=== PATIENT | female | born 1990 | race Caucasian/White ===

== ENCOUNTER → 2016-05-28 | Emergency (ER) | payer OTHER ==
[~2016-05-28] VITALS: Wt 61.5 kg
[~2016-05-28] MED LIST: ACET1TAB40 PO; FAMOTIDINE 20 MG INJ IV STA; ONDA8TAB14 PO; ONDANSETRON 4 MG INJ IV STA; SOD CHLORIDE 0.9% 1,000 ML IV STA; morphine 2 MG INJ IV STA
[2016-05-28 16:47] LABS: ADD UMIC YES; URINE BILIRUBIN (Dip) NEGATIVE (NEGATIVE); URINE BLOOD (Dip) NEGATIVE (NEGATIVE); URINE COLOR LT. YELLOW (YELLOW); URINE GLUCOSE (Dip) NEGATIVE (NEGATIVE); URINE KETONES (Dip) 15 (NEGATIVE); URINE LEUKOCYTE ESTERASE (Dip) TRACE (NEGATIVE); URINE NITRITE (Dip) NEGATIVE (NEGATIVE); URINE TOTAL PROTEIN (Dip) 1+ (NEGATIVE); URINE UROBILINOGEN (Dip) 0.2 E.U./dL (0.1-1.0)
[2016-05-28 16:55] LABS: CONDITION 1; HEMOGLOBIN 14.1 g/dl (12.0-16.0); LH ANALYZER COMMENTS 1; MEAN CORPUSCULAR HEMOGLOBIN 29.5 pg (29.0-33.0); MEAN CORPUSCULAR HGB CONC 34.3 g/dl (32.0-37.0); MEAN CORPUSCULAR VOLUME 86.1 fl (82.0-101.0); MEAN PLATELET VOLUME 10.7 fl (7.4-10.4); PLATELET COUNT 232 10^3/UL (140-440); RED BLOOD COUNT 4.77 10^6/ul (4.20-5.40); RED CELL DISTRIBUTION WIDTH 15.2 % (11.5-14.5); SUSPECT 1; UNCORRECTED WBC 15.4 10^3/ul (4.8-10.8); WHITE BLOOD COUNT 15.4 10^3/ul (4.8-10.8)
[2016-05-28 16:59] LABS: ALBUMIN 5.3 g/dl (3.3-4.9)
[2016-05-28 17:00] LABS: POTASSIUM 4.1 mmol/L (3.5-5.1)
[2016-05-28 17:02] LABS: ALBUMIN/GLOBULIN RATIO 1.06; BILIRUBIN,INDIRECT 0.3 mg/dl (0-1.1); BILIRUBIN,TOTAL 0.3 mg/dl (0.2-1.3); CREATININE 0.66 mg/dl (0.44-1.00); TOTAL PROTEIN 10.3 g/dl (6.1-8.1)
[2016-05-28 17:03] LABS: CALCIUM 9.8 mg/dl (8.4-10.2)
[2016-05-28 17:05] LABS: BACTERIA,URINE FEW; SQUAMOUS EPITHELIAL CELL,UR MANY; URINE RBCS 0-2 /HPF (0)
[2016-05-28 18:05] LABS: MONOCYTE # 0.8 10^3/ul (0.3-0.9); NEUTROPHIL # 12.5 10^3/ul (1.6-7.5)
--- NOTE | 2016-05-28 18:22 | ERD ---
ER Documentation Chief Complaint Date/Time DATE: 05/28/16 TIME: 18:20 Chief Complaint NAUSEA, VOMITING AFTER ETOH BINGE DRINKING LAST NIGHT HPI This 25-year-old female presents with vomiting since this morning. She did drink 4 beers last night. She denies any fevers, blood, diarrhea, urinary complaints. ROS All systems reviewed and are negative except as per history of present illness. Medications Home Meds Active Scripts Acetaminophen with Codeine (Acetaminophen-Cod #3 Tablet) 1 Each Tablet, 1 TAB PO Q6H Y for PAIN, #10 TAB Prov:BOBBY ESCOBAR MD 05/28/16 Ondansetron (Ondansetron Odt) 8 Mg Tab.rapdis, 8 MG PO Q6H Y for NAUSEA AND/OR VOMITING, #10 TAB Prov:BOBBY ESCOBAR MD 05/28/16 Reported Medications [None] No Conflict Check 10/12/11 Allergies Allergies: Coded Allergies: No Known Allergy (Unverified , 05/28/16) PMhx/Soc Medical and Surgical Hx: pt denies Medical Hx, pt denies Surgical Hx History of Surgery: No Anesthesia Reaction: No Hx Neurological Disorder: No Hx Respiratory Disorders: No Hx Cardiac Disorders: No Hx Psychiatric Problems: No Hx Miscellaneous Medical Probl: No Hx Alcohol Use: No Hx Substance Use: No Hx Tobacco Use: No Physical Exam Vitals Vital Signs Date Time Temp Pulse Resp B/P Pulse Ox O2 Delivery O2 Flow Rate FiO2 05/28/16 14:03 97.5 73 17 159/92 98 Physical Exam Const: [] Head: Atraumatic Eyes: Normal Conjunctiva ENT: Normal External Ears, Nose and Mouth. Neck: Full range of motion..~ No meningismus. Resp: Clear to auscultation bilaterally Cardio: Regular rate and rhythm, no murmurs Abd: Soft, non tender, non distended. Normal bowel sounds Skin: No petechiae or rashes Back: No midline or flank tenderness Ext: No cyanosis, or edema Neur: Awake and alert Psych: Normal Mood and Affect Result Diagram: 05/28/16 1631 05/28/16 1631 Results 24 hrs Laboratory Tests Test 05/28/16 16:30 05/28/16 16:31 Urine Amorphous Urates FEW Urine Bacteria FEW Urine Bilirubin NEGATIVE Urine Clarity CLOUDY Urine Color LT. YELLOW Urine Glucose NEGATIVE% Urine Hemoglobin NEGATIVE Urine Ketones 15 Urine Leukocyte Esterase TRACE Urine Microscopic RBC 0-2/HPF Urine Microscopic WBC 2-5/HPF Urine Nitrite NEGATIVE Urine Specific [place] 1.015 Urine Squamous Epithelial Cells MANY Urine Total Protein 1+ Urine Urobilinogen 0.2 E.U./dL Urine pH 8.5 Alanine Aminotransferase (ALT/SGPT) 30IU/L Albumin 5.3g/dl Albumin/Globulin Ratio 1.06 Alkaline Phosphatase 82IU/L Anion Gap 22 Aspartate Amino Transf (AST/SGOT) 31IU/L Band Neutrophils % 1.0% Blood Morphology Comment Blood Urea Nitrogen 10mg/dl Calcium Level 9.8mg/dl Carbon Dioxide Level 28mmol/L Chloride Level 101mmol/L Creatinine 0.66mg/dl Direct Bilirubin 0.00mg/dl Globulin 5.00g/dl Glucose Level 103mg/dl Hematocrit 41.0% Hemoglobin 14.1g/dl Indirect Bilirubin 0.3mg/dl Large Platelets FEW Lipase 72U/L Lymphocytes # 2.010^3/ul Lymphocytes % 13.0% Mean Corpuscular Hemoglobin 29.5pg Mean Corpuscular Hemoglobin Concent 34.3g/dl Mean Corpuscular Volume 86.1fl Mean Platelet Volume 10.7fl Monocytes # 0.810^3/ul Monocytes % 5.0% Neutrophils # 12.510^3/ul Neutrophils % 81.0% Platelet Count 17899^3/UL Potassium Level 4.1mmol/L Red Blood Count 4.7710^6/ul Red Cell Distribution Width 15.2% Sodium Level 147mmol/L Total Bilirubin 0.3mg/dl Total Protein 10.3g/dl White Blood Count 15.410^3/ul Current Medications Medications (Trade) Dose Ordered Sig/Mike Route PRN Reason Start Time Stop Time Status Last Admin Dose Admin Sodium Chloride (NS) 1,000 ml @ 1,000 mls/hr Q1H STAT IV 05/28/16 16:04 05/28/16 17:03 DC 05/28/16 16:30 Morphine Sulfate (morphine) 2 mg ONCE STAT IV 05/28/16 16:04 05/28/16 16:06 DC 05/28/16 16:30 Ondansetron HCl (Zofran Inj) 4 mg ONCE STAT IV 05/28/16 16:04 1/6/17 16:06 DC 05/28/16 16:30 Famotidine (Pepcid Iv) 20 mg ONCE STAT IV 05/28/16 16:04 05/28/16 16:06 DC 05/28/16 16:30 Procedures/MDM I views obtained. Patient was given 1 L normal saline IV Zofran 4 mg IV morphine 2 mg IV. Patient felt better after observation treatment. CBC shows white blood count 15. There is trace leukocytes without nitrites, glucose or blood. CMP shows no acute abnormalities and lipase is normal. Patient had a benign abdomen on serial exam. Patient is hCG negative. Patient presents with vomiting 1 day of uncertain etiology. It may be due to alcohol consumption last night or she may have a foodborne illness or viral gastroenteritis as well. Signs and symptoms are not consistent with hepatobiliary disease, , pancreatitis, appendicitis, acute abdomen or obstruction. She will treated with Tylenol 3 and Zofran at home and further observation. Patient should return for fever, blood, vomiting despite treatment, worsening pain, new or worsening symptoms or primary care doctor this week. Departure Diagnosis: Primary Impression: Nausea and vomiting Vomiting type: unspecified Vomiting Intractability: non-intractable Qualified Code: R11.2 - Non-intractable vomiting with nausea, unspecified vomiting type Condition: Stable Patient Instructions: Nausea and Vomiting-Adult Additional Instructions: May be viral illness related to alcohol consumption which should resolve in the next 1-3 days. Recheck for fevers, vomiting despite treatment, worsening pain, blood, new or worsening symptoms. BOBBY ESCOBAR MD May 28, 2016 18:22
== END | disposition home or self-care (01) ==
LOC: FTE 13:56
DX: R11.2 Nausea with vomiting, unspecified (principal)
CPT/HCPCS: 80053; 81001; 81003; 83690; 85025; J2270; J2405; J7030; 36415; 96361; 96374; 96375

== ENCOUNTER 2016-08-27 18:13 | Emergency (ER) | payer OTHER ==
[~2016-08-27] VITALS: Ht 160 cm; Wt 64.0 kg
[~2016-08-27 18:13] MED LIST changes: -FAMOTIDINE 20 MG INJ IV STA; -ONDANSETRON 4 MG INJ IV STA; -SOD CHLORIDE 0.9% 1,000 ML IV STA; -morphine 2 MG INJ IV STA
[2016-08-27 18:17] VITALS: Ht 160 cm; Wt 64.0 kg
[2016-08-27] MEDS ORDERED: HYDROCODONE/APAP (10/325) TAB PO ONE (19:00)
[2016-08-27] MEDS ORDERED: LIDOCAINE 1% (MDV) 20 ML INJ INJ STA (20:03)
--- NOTE | 2016-08-27 20:07 | RADRPT ---
PROCEDURE: Left XR Hand. CLINICAL INDICATION: Foreign body/laceration. TECHNIQUE: AP, oblique and lateral views of the left hand were obtained. COMPARISON: No. FINDINGS: The bones of the hand appear intact, with no evidence of fracture, dislocation, or subluxation. The joint spaces are preserved. Bone mineralization is normal. No significant soft tissue swelling is se en. There is a metallic foreign body embedded in the soft tissues at the distal end of the index fi nger. The adjacent distal phalanx is normal. IMPRESSION: 1. There is a metallic foreign body adjacent to the tuft of the distal left second phalanx. 2. No evidence of an acute fracture. RPTAT:AAJJ Physician Dominick Date Time Electronically viewed and signed by Milo Solorio Physician on 08/27/2016 20:07 DUSTIN/
[2016-08-27] MEDS ORDERED: HYDR-906 PO (20:13)
--- NOTE | 2016-08-27 20:31 | ERD ---
ER Documentation Chief Complaint Date/Time DATE: 08/27/16 TIME: 20:29 Chief Complaint pt bib family with c/o knitting hook in right index finger HPI Patient is a 25-year-old female who presents with foreign body of a knitting hook in her right index finger that occurred today. She tried to remove it at home however given it is hooked at the end he she was unable to. She has pain now at the site. Her tetanus is up-to-date. Denies any numbness or tingling. Has not taken any medications for pain. No bleeding or drainage. ROS All systems reviewed and are negative except as per history of present illness. Medications Home Meds Active Scripts Hydrocodone/Acetaminophen ([place] 5-325 Tablet) 1 Each Tablet, 1 TAB PO Q6H Y for PAIN, #15 TAB Prov:KIT PEDERSON PA-C 08/27/16 Acetaminophen with Codeine (Acetaminophen-Cod #3 Tablet) 1 Each Tablet, 1 TAB PO Q6H Y for PAIN, #10 TAB Prov:BOBBY ESCOBAR MD 05/28/16 Ondansetron (Ondansetron Odt) 8 Mg Tab.rapdis, 8 MG PO Q6H Y for NAUSEA AND/OR VOMITING, #10 TAB Prov:BOBBY ESCOBAR MD 05/28/16 Reported Medications [None] No Conflict Check 10/12/11 Allergies Allergies: Coded Allergies: No Known Allergy (Unverified , 05/28/16) PMhx/Soc Medical and Surgical Hx: pt denies Medical Hx, pt denies Surgical Hx History of Surgery: No Anesthesia Reaction: No Hx Neurological Disorder: No Hx Respiratory Disorders: No Hx Cardiac Disorders: No Hx Psychiatric Problems: No Hx Miscellaneous Medical Probl: No Hx Alcohol Use: No Hx Substance Use: Yes (marijuana) Hx Tobacco Use: No Smoking Status: Never smoker FmHx Family History: No diabetes Physical Exam Vitals Vital Signs Date Time Temp Pulse Resp B/P Pulse Ox O2 Delivery O2 Flow Rate FiO2 08/27/16 18:17 98.3 74 16 146/80 100 Physical Exam General: well developed, well nourished, alert, nontoxic, no distress Head: normocephalic, atraumatic Oropharynx: no tonsilar erythema or edema, uvula midline, no exudates, no kissing tonsils, no drooling Respiratory: Clear to auscaultation bilaterally, speaks in full sentences, no use of accesory muscles or labored breathing, no rales, ronchi, or wheezing cv: rrr Extremities: Left index finger has small hook in the distal tip, tender to palpation, capillary refill less than 2 seconds, no bony abnormalities, sensation to light touch intact Results 24 hrs Current Medications Medications (Trade) Dose Ordered Sig/Mike Route PRN Reason Start Time Stop Time Status Last Admin Dose Admin Acetaminophen/ Hydrocodone Bitart ([place] (10325)) 1 tab ONCE ONCE PO 08/27/16 19:00 08/27/16 19:01 DC 08/27/16 19:03 Lidocaine (Xylocaine 1% (Mdv) 20 ml) 20 ml ONCE STAT INJ 08/27/16 20:03 08/27/16 20:04 DC Procedures/MDM This patient is a foreign body in her finger. She is neurovascular intact. X- ray shows that it is only in the soft tissue and does not touch the bone and there is no evidence of fracture. The finger and wound were irrigated with normal saline and Betadine and the finger was prepped with Betadine and 1% lidocaine injection was used to perform a digital block. I then made a small incision using an 11 blade around the edge of the needle and was able to easily remove it. Patient tolerated the procedure well and there were no complications. Her wound was appropriately dressed and bandaged she was given a prescription for pain medications. Her tetanus is up-to-date . Recommended this patient follow up with her primary care doctor within 48 hours or return to the emergency room for any worsening of symptoms. However this time I do believe there is suitable for outpatient management. I answered all their questions and they agreed with the plan and were discharged home. Departure Diagnosis: Primary Impression: Foreign body finger Condition: Stable Patient Instructions: Foreign Body, Soft Tissue (Removed) Additional Instructions: Call your primary care doctor TOMORROW for an appointment during the next 1-2 days.See the doctor sooner or return here if your condition worsens before your appointment time. KIT PEDERSON PA-C Aug 27, 2016 20:31
== END 2016-08-27 20:36 | disposition home or self-care (01) ==
LOC: FTE 18:13
DX: S61.230A Puncture wound without foreign body of right index finger without damage to nail, initial encounter (principal); W26.8XXA Contact with other sharp object(s), not elsewhere classified, initial encounter; Y92.009 Unspecified place in unspecified non-institutional (private) residence as the place of occurrence of the external cause